=== PATIENT | male | born 1945 | race Caucasian/White ===

== ENCOUNTER 2017-01-25 13:41 | Outpatient (CLI) | payer MEDICARE, OTHER ==
[2017-01-25 18:39] LABS: HEMOGLOBIN A1C 0.54 g/dL
== END 2017-01-25 13:42 | disposition home or self-care (01) ==
LOC: LAB.F 13:41
PROVIDERS: ATTEND Family Medicine
DX: E73.9 Lactose intolerance, unspecified (principal)
CPT/HCPCS: 36415; 83036

== ENCOUNTER 2018-01-18 14:17 | Outpatient (CLI) | payer MEDICARE, OTHER ==
--- NOTE | 2018-01-18 16:24 | XRAY Report ---
Procedure Date: 01/18/2018 Accession Number: [id number] / [id number] Procedure: XRS - Lumbar Spine 2 View CPT Code: FULL RESULT: EXAM: Lumbar Spine 2 View DATE: 01/18/2018 2:35 PM CLINICAL HISTORY: LUMBAR SPINE PAIN COMPARISON: None. TECHNIQUE: 2 views. FINDINGS: Alignment: Levoconvex thoracolumbar scoliosis centered about L1 with left lateral flowing osteophytosis along the left side of T12, L1, L2. Bones: Five [id number]-tcm-orfievp lumbar vertebral bodies are present. No fractures or bone lesions. Disks: Desiccation of disc space height is most pronounced at L2-L5. Facets: Facet degenerative changes are most pronounced at L4-L5, apparent pars defect at L4. Sacroiliac Joints: Unremarkable. Soft Tissues: Normal. The visualized bowel gas pattern is normal. Extensive aortic calcifications. IMPRESSION: Levoconvex thoracolumbar scoliosis with associated degenerative changes. Question L4 pars defect. Atherosclerotic aorta. RADIA
== END 2018-01-18 14:18 | disposition home or self-care (01) ==
LOC: DI.S 14:17
PROVIDERS: ATTEND Nurse Practitioner Family
DX: M47.896 Other spondylosis, lumbar region (principal); M51.36 Other intervertebral disc degeneration, lumbar region; M41.85 Other forms of scoliosis, thoracolumbar region
CPT/HCPCS: 72100

== ENCOUNTER 2018-01-28 14:20 | Outpatient (CLI) | payer MEDICARE, OTHER ==
--- NOTE | 2018-01-28 15:54 | XRAY Report ---
Procedure Date: 01/28/2018 Accession Number: [id number] / [id number] Procedure: XRS - Ribs w/PA Chest LT CPT Code: FULL RESULT: EXAM: Ribs w/PA Chest LT DATE: 01/28/2018 2:49 PM CLINICAL HISTORY: PLEUROTIC CHEST PAIN COMPARISON: 01/03/2013. TECHNIQUE: 1 view of the chest and 2 views of the ribs. FINDINGS: Bones: Normal. No fracture or bone lesion. Lungs: No focal opacities. No pneumothorax or pleural effusions. Mediastinum: Heart and mediastinal contours are unremarkable. Other: Calcifications are seen in the region of the inferior left glenoid. IMPRESSION: No rib fracture is detected. No pleural effusion or pneumothorax is seen. RADIA
== END 2018-01-28 14:21 | disposition home or self-care (01) ==
LOC: DI.S 14:20
PROVIDERS: ATTEND Internal Medicine
DX: R07.9 Chest pain, unspecified (principal)

== ENCOUNTER 2018-10-16 11:11 | Outpatient (CLI) | payer MEDICARE, OTHER ==
[2018-10-16 11:26] LABS: BASOPHILS # (AUTO) 0.1 10^3/uL (0.0-0.1); BASOPHILS % (AUTO) 1.1 %; EOSINOPHILS # (AUTO) 0.1 10^3/uL (0.0-0.7); EOSINOPHILS % (AUTO) 1.8 %; HGB - HEMOGLOBIN 13.8 g/dL (14.0-18.0); LYMPHOCYTES # (AUTO) 2.4 10^3/uL (1.5-3.5); MEAN CORPUSCULAR HEMOGLOBIN 32.3 pg (27.0-31.0); MEAN CORPUSCULAR HGB CONC 33.4 g/dL (32.0-36.0); MEAN CORPUSCULAR VOLUME 96.5 fL (80.0-94.0); MEAN PLATELET VOLUME 7.3 fL (7.4-11.4); MONOCYTES # (AUTO) 0.7 10^3/uL (0.0-1.0); MONOCYTES % (AUTO) 9.4 %; NEUTROPHILS % (AUTO) 54.7 %; PLT - PLATELET COUNT 194 10^3/uL (130-450); RED BLOOD COUNT 4.27 10^6/uL (4.70-6.10); RED CELL DISTRIBUTION WIDTH 13.1 % (12.0-15.0); WHITE BLOOD COUNT 7.3 x10^3/uL (4.8-10.8)
[2018-10-16 11:39] LABS: ALBUMIN 4.2 g/dL (3.2-5.5); ALBUMIN/GLOBULIN RATIO 1.3 (1.0-2.2); CALCIUM 8.9 mg/dL (8.5-10.3); CREATININE 0.9 mg/dL (0.6-1.2); TOTAL PROTEIN 7.4 g/dL (6.7-8.2)
== END 2018-10-16 11:12 | disposition home or self-care (01) ==
LOC: LAB 11:11
PROVIDERS: ATTEND Internal Medicine Gastroenterology
DX: I10 Essential (primary) hypertension (principal)
CPT/HCPCS: 36415; 80053; 85025; 93005

== ENCOUNTER 2018-11-07 10:08 | Day surgery (SDC) | payer MEDICARE, OTHER ==
[2018-11-07] MEDS ORDERED: LACTATED RINGERS 1,000 ML IV ONE (10:42)
[2018-11-07] MEDS ORDERED: MIDAZOLAM 2 MG/2 ML VIAL IVP ONE (11:54)
[2018-11-07] MEDS ORDERED: fentaNYL 250 MCG/5 ML VIAL IVP ONE (11:54)
[2018-11-07 13:16] VITALS: BP 138/85
== END 2018-11-07 10:09 | disposition home or self-care (01) ==
LOC: SDS 10:08
PROVIDERS: ATTEND Internal Medicine Gastroenterology
PROC: 0DBN8ZZ Excision of Sigmoid Colon, Via Natural or Artificial Opening Endoscopic (ICD-10-PCS; 2018-11-07)
PROC: 0DBP8ZZ Excision of Rectum, Via Natural or Artificial Opening Endoscopic (ICD-10-PCS; 2018-11-07)
PROC: 0DBM8ZZ Excision of Descending Colon, Via Natural or Artificial Opening Endoscopic (ICD-10-PCS; 2018-11-07)
PROC: 0DBK8ZZ Excision of Ascending Colon, Via Natural or Artificial Opening Endoscopic (ICD-10-PCS; principal; 2018-11-07 12:00)
DX: R19.5 Other fecal abnormalities (principal); D12.2 Benign neoplasm of ascending colon; D12.4 Benign neoplasm of descending colon; D12.5 Benign neoplasm of sigmoid colon; K62.1 Rectal polyp; K57.30 Diverticulosis of large intestine without perforation or abscess without bleeding; K63.89 Other specified diseases of intestine; J45.909 Unspecified asthma, uncomplicated; I10 Essential (primary) hypertension; J30.2 Other seasonal allergic rhinitis; Z87.891 Personal history of nicotine dependence
CPT/HCPCS: 45380; J3010; J7120

== ENCOUNTER 2019-02-19 08:45 | Outpatient (CLI) | payer MEDICARE, OTHER ==
[2019-02-19] MEDS ORDERED: BARIUM SULFATE 176 GM BOTTLE PO ONE (11:09)
[2019-02-19] MEDS ORDERED: BARIUM SULFATE 148 GM POWDER PO ONE (11:11)
--- NOTE | 2019-02-19 16:03 | XRAY Report ---
Reason: ESOPHAGEAL DYSPHAGIA Procedure Date: 02/19/2019 Accession Number: [id number] / [id number] Procedure: FL - Esophogram CPT Code: FULL RESULT: EXAM: BARIUM ESOPHAGRAM EXAM DATE: 02/19/2019 11:02 AM. CLINICAL HISTORY: Esophageal dysphagia. COMPARISONS: None. TECHNIQUE: Routine double contrast esophagram. Fluoroscopy Time: 1 minute. Number of Images: 21. FINDINGS: Note: Fluoroscopy unit malfunctioned during the early part of initial exam and some images were lost. Swallowing Mechanism: Normal. No tracheal aspiration or penetration. Esophageal Motility: Normal peristaltic stripping wave. Mucosa: Normal. No ulcerations or masses. Gastroesophageal Junction: Small amount of transient reflux was noted with Valsalva maneuver. Otherwise no hiatal hernia or stricture. Other: None. IMPRESSION: Minimal gastroesophageal reflux with Valsalva maneuver. Otherwise barium swallow within normal limits. RADIA
== END 2019-02-19 08:46 | disposition home or self-care (01) ==
LOC: DI 08:45
PROVIDERS: ATTEND Family Medicine
DX: K21.9 Gastro-esophageal reflux disease without esophagitis (principal); R13.19 Other dysphagia
CPT/HCPCS: 74220; A9270

== ENCOUNTER 2020-05-07 08:56 | Outpatient (CLI) | payer MEDICARE, OTHER ==
[2020-05-07] MEDS ORDERED: ALBUTEROL 1 PUFF INH STA (10:47)
== END 2020-05-07 08:57 | disposition home or self-care (01) ==
LOC: RT 08:56
PROVIDERS: ATTEND Family Medicine
DX: R06.2 Wheezing (principal)
CPT/HCPCS: 94060; 94664; 94727; 94729

== ENCOUNTER 2020-06-10 07:54 | Emergency (ER) | payer MEDICARE, OTHER ==
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
[2020-06-10] MEDS ORDERED: HYDROmorphone 1 MG/ML CARPUJECT IM STA (08:48)
[2020-06-10] MEDS ORDERED: CYCLOBENZAPRINE 10 MG TABLET PO STA (08:48)
--- NOTE | 2020-06-10 09:39 | XRAY Report ---
PROCEDURE: Cervical Spine 2 View INDICATIONS: NECK INJURY/PAIN TECHNIQUE: 3 view(s) of the cervical spine were acquired. COMPARISON: None. FINDINGS: Bones: No fractures or dislocations to the C7 level. The lateral masses of C1 appear intact on the odontoid view. No suspicious bony lesions. Extensive cervical spondylitic change. Soft tissues: No prevertebral soft tissue swelling. IMPRESSION: 1. No evidence acute cervical fracture or dislocation. T1 suboptimally visualized. 2. Extensive cervical spondylitic change. Comment: In the setting of extensive cervical spondylitic change, would consider CT cervical spine. H ave significant clinical suspicion of acute injury. Reviewed by: Francesco Espino MD on 06/10/2020 9:38 AM PST Approved by: Francesco Espino MD on 06/10/2020 9:38 AM PST Station ID: [id number]
[2020-06-10 10:19] VITALS: BP 151/88
== END 2020-06-10 10:20 | disposition home or self-care (01) ==
LOC: ED 07:54
DX: S16.1XXA Strain of muscle, fascia and tendon at neck level, initial encounter (principal); X50.9XXA Other and unspecified overexertion or strenuous movements or postures, initial encounter; M47.812 Spondylosis without myelopathy or radiculopathy, cervical region; I10 Essential (primary) hypertension; Z79.82 Long term (current) use of aspirin
CPT/HCPCS: 72040; 96372; 99283; 99284; A9270; J1170

== ENCOUNTER 2021-05-03 12:12 | Outpatient (CLI) | payer MEDICARE, OTHER ==
--- NOTE | 2021-05-03 15:17 | XRAY Report ---
PROCEDURE: Hip w/Pelvis 2-3V LT INDICATIONS: PAIN IN LEFT HIP TECHNIQUE: AP pelvis with lateral view(s) of the bilateral hip(s). COMPARISON: None available in PACS secondary to technical issues. FINDINGS: No acute fracture. Lumbar spondylosis and facet disease. Mild bilateral hip joint degeneration. IMPRESSION: Mild bilateral hip joint degeneration. Reviewed by: Edy Reddy MD on 05/03/2021 3:15 PM PDT Approved by: Edy Reddy MD on 05/03/2021 3:15 PM PDT Station ID: [id number]
== END 2021-05-03 12:13 | disposition home or self-care (01) ==
LOC: DI 12:12
PROVIDERS: ATTEND Family Medicine
DX: M25.552 Pain in left hip (principal); M16.0 Bilateral primary osteoarthritis of hip

== ENCOUNTER 2021-10-24 07:24 | Outpatient (CLI) | payer MEDICARE, OTHER ==
[2021-10-24 14:56] LABS: ALBUMIN 3.8 g/dL (3.2-5.5); ALBUMIN/GLOBULIN RATIO 1.1 (1.0-2.2); ALKALINE PHOSPHATASE 103 IU/L (42-121); ALT ALANINE AMINOTRANSFERASE 24 IU/L (10-60); AST ASPARTATE AMINOTRANSFERASE 20 IU/L (10-42); BILIRUBIN,TOTAL 1.1 mg/dL (0.2-1.0); BUN - BLOOD UREA NITROGEN 32 mg/dL (6-20); CALCIUM 9.1 mg/dL (8.5-10.3); CARBON DIOXIDE - CO2 28 mmol/L (21-32); CHLORIDE 101 mmol/L (101-111); CHOL/HDL RATIO 2.6 (<5.0); CHOLESTEROL 167 mg/dL; GFR - MDRD 72 (>89); GLUCOSE 101 mg/dL (70-100); HDL CHOLESTEROL 65 mg/dL; LDL CHOLESTEROL,CALCULATED 90 mg/dL; LDL/HDL RATIO 1.4 (<3.6); POTASSIUM 4.4 mmol/L (3.5-5.0); SODIUM 138 mmol/L (135-145); TOTAL PROTEIN 7.2 g/dL (6.7-8.2); TRIGLYCERIDES 62 mg/dL; VLDL CHOLESTEROL 12 mg/dL
== END 2021-10-24 07:25 | disposition home or self-care (01) ==
LOC: LAB.S 07:24
PROVIDERS: ATTEND Family Medicine
DX: I10 Essential (primary) hypertension (principal); E78.2 Mixed hyperlipidemia
CPT/HCPCS: 36415; 80053; 80061; 83721

== ENCOUNTER 2021-12-26 07:09 | Outpatient (CLI) | payer MEDICARE, OTHER ==
[2021-12-26 15:10] LABS: ALBUMIN 3.8 g/dL (3.2-5.5); ALBUMIN/GLOBULIN RATIO 1.2 (1.0-2.2); ALKALINE PHOSPHATASE 195 IU/L (42-121); ALT ALANINE AMINOTRANSFERASE 84 IU/L (10-60); AST ASPARTATE AMINOTRANSFERASE 63 IU/L (10-42); BILIRUBIN,DIRECT 0.2 mg/dL (0.1-0.5); BILIRUBIN,TOTAL 0.8 mg/dL (0.2-1.0); BUN - BLOOD UREA NITROGEN 22 mg/dL (6-20); CALCIUM 9.3 mg/dL (8.5-10.3); CARBON DIOXIDE - CO2 30 mmol/L (21-32); CHLORIDE 102 mmol/L (101-111); CHOL/HDL RATIO 1.7 (<5.0); CHOLESTEROL 134 mg/dL; GFR - MDRD 72 (>89); GLUCOSE 117 mg/dL (70-100); HDL CHOLESTEROL 80 mg/dL; POTASSIUM 4.4 mmol/L (3.5-5.0); SODIUM 140 mmol/L (135-145); TOTAL PROTEIN 6.9 g/dL (6.7-8.2); TRIGLYCERIDES 36 mg/dL
== END 2021-12-26 07:10 | disposition home or self-care (01) ==
LOC: LAB.S 07:09
PROVIDERS: ATTEND Family Medicine
DX: E78.5 Hyperlipidemia, unspecified (principal); I10 Essential (primary) hypertension; I65.23 Occlusion and stenosis of bilateral carotid arteries
CPT/HCPCS: 36415; 80053; 80061; 80076; 82248; 83721

== ENCOUNTER 2022-10-02 15:23 | Outpatient (CLI) | payer MEDICARE, OTHER ==
--- NOTE | 2022-10-02 17:25 | MRI Report ---
PROCEDURE: LUMBAR SPINE WO INDICATIONS: LUMBAR RADICULOPATHY TECHNIQUE: Noncontrast sagittal T1 spin echo and T2 fast echo, sagittal STIR, axial T1 and T2 fast spin echo thr ough the lumbar spine. In cases with scoliosis, additional coronal T2 fast spin echo may be performe d. COMPARISON: Lumbar spine plain films dated 01/18/2018. FINDINGS: Image quality: Excellent. Alignment and Curvature: Mild levocurvature centered at L2-L3. Bone Marrow: Marrow is of normal overall signal. No acute vertebral body compression fractures. Spinal Cord: Conus medullaris terminates at the L1 level. Visualized cord demonstrates normal signa l and size. Paraspinous Soft Tissues: No paravertebral masses. T12-L1: No canal stenosis or foraminal stenosis. L1-L2: Posterior disc plus osteophyte. Mild facet hypertrophy. Mild canal stenosis. Qvee-ia-sasrmh te bilateral foraminal stenosis. L2-L3: Posterior disc with osteophyte. Facet hypertrophy. Mild canal stenosis. Mild to moderate bi lateral foraminal stenosis. L3-L4: Posterior disc with osteophyte. Facet hypertrophy. Mild canal stenosis. Moderate bilateral f oraminal narrowing with mild flattening deformity on the exiting bilateral L3 nerve roots. L4-L5: Short pedicles. Prominent facet hypertrophy. Posterior disc protrusion. Severe or high-grade canal stenosis. Qphw-qm-[id number] right foraminal narrowing. Severe left foraminal narrowing with lef t foraminal L4 nerve root impingement. L5-S1: Short pedicles. Disc bulge. Facet and ligament hypertrophy. Severe canal stenosis. Mild to m oderate right foraminal narrowing. Severe left foraminal narrowing with left foraminal L5 nerve root impingement. IMPRESSION: 1. 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 2. Canal stenosis is severe or high-grade at L4-L5 and severe L5-S1. 3. Multilevel foraminal narrowing as described above. Findings include severe left foraminal narrowin g with left foraminal nerve root impingement at L4-L5 and L5-S1. Reviewed by: Francesco Espino MD on 10/02/2022 5:24 PM PDT Approved by: Francesco Espino MD on 10/02/2022 5:24 PM PDT Station ID: [id number]
== END 2022-10-02 15:24 | disposition home or self-care (01) ==
LOC: DI 15:23
PROVIDERS: ATTEND Physical Medicine & Rehabilitation Sports Medicine
DX: M47.816 Spondylosis without myelopathy or radiculopathy, lumbar region (principal); M51.26 Other intervertebral disc displacement, lumbar region; M48.061 Spinal stenosis, lumbar region without neurogenic claudication; M47.817 Spondylosis without myelopathy or radiculopathy, lumbosacral region; M48.07 Spinal stenosis, lumbosacral region

== ENCOUNTER 2022-10-13 07:00 | Outpatient (CLI) | payer MEDICARE, OTHER ==
--- NOTE | 2022-10-13 11:43 | XRAY Report ---
PROCEDURE: Chest 2 View X-Ray INDICATIONS: PRODUCTIVE COUGH/CHEST CONGESTION TECHNIQUE: 2 views of the chest were acquired. COMPARISON: 01/28/2018. FINDINGS: Surgical changes and devices: None. Lungs and pleura: No pleural effusions or pneumothorax. Lungs are clear. Mediastinum: Mediastinal contours appear normal. Heart size is normal. Bones and chest wall: No suspicious bony lesions. Overlying soft tissues appear unremarkable. IMPRESSION: No acute cardiopulmonary process. Reviewed by: Francesco Espino MD on 10/13/2022 11:42 AM PDT Approved by: Francesco Espino MD on 10/13/2022 11:42 AM PDT Station ID: [id number]
== END 2022-10-13 23:59 | disposition home or self-care (01) ==
LOC: DI.S 07:00
PROVIDERS: ATTEND Physician Assistant Medical
DX: R05.8 Other specified cough (principal); R09.89 Other specified symptoms and signs involving the circulatory and respiratory systems

== ENCOUNTER 2022-10-31 10:38 | Outpatient (CLI) | payer MEDICARE, OTHER ==
[2022-10-31] MEDS ORDERED: GADOBUTROL 10 MMOL/10 ML VIAL ONE (12:21)
--- NOTE | 2022-10-31 16:19 | MRI Report ---
PROCEDURE: MRI cervical spine with and without contrast INDICATIONS: Pain CONTRAST: gadavist 7.9ml TECHNIQUE: Noncontrast sagittal T1 spin echo and T2 fast spin echo, sagittal STIR, sagittal PD fast spin echo, f oraminal oblique sagittal T2 fast spin echo, axial gradient echo or T2 fast spin echo through the cer vical spine. After the administration of contrast, sagittal and axial T1 spin echo with fat saturati on through the cervical spine. COMPARISON: None. FINDINGS: Image quality: Excellent. Alignment and curvature: There is straightening of normal cervical lordosis Marrow: Marrow demonstrates normal overall signal. Spinal cord: No suspicious intramedullary enhancement. No cerebellar tonsillar herniation. No abno rmal enhancement Paraspinous soft tissues: No paravertebral masses or suspicious enhancement. C2-C3: Disc height is maintained. Hypertrophic facet joints present. Mild central stenosis. Severe r ight and moderate left foraminal stenosis C3-C4: Disc height is maintained. There is degenerative ankylosis posteriorly. Posterior disc osteo phyte complex results in mild central stenosis. Severe right and left foraminal stenosis C4-C5: Disc space narrowing with posterior disc osteophyte complex results in moderate central steno sis. Moderate right and severe left foraminal stenosis present. C5-C6: Disc space narrowing and posterior disc osteophyte complex results in mild to moderate centra l stenosis. Hypertrophic uncovertebral joints result in severe right and left foraminal stenosis. C6-C7: Disc space narrowing and hypertrophic uncovertebral joints combine to result in mild to moder ate central stenosis. Severe bilateral foraminal stenosis present. C7-T1: Disc space narrowing with posterior disc osteophyte complex results in mild central stenosis. Hypertrophic uncovertebral joints associated with moderate bilateral foraminal stenosis. IMPRESSION: Multilevel degenerative disc disease and arthropathy results in varying degrees of central and forami nal stenosis including moderate central stenosis at C4-5 and multilevel severe foraminal stenosis Reviewed by: Pascual Wang MD on 10/31/2022 3:18 PM AKSIMON Approved by: Pascual Wang MD on 10/31/2022 3:18 PM AKSIMON Station ID: [id number]
[2022-10-31] MEDS ORDERED: GADOBUTROL 10 MMOL/10 ML VIAL IVP ONE (17:53)
--- NOTE | 2022-10-31 19:03 | MRI Report ---
PROCEDURE: MRI thoracic spine with and without contrast INDICATIONS: MYELOMALACIA OF CORD CONTRAST: gadavist 7.9ml TECHNIQUE: Noncontrast sagittal T1 spin echo and T2 fast spin echo, sagittal STIR, axial T1 and T2 fast spin ech o through the thoracic spine. After the administration of contrast, axial and sagittal T1 spin echo with fat saturation through the thoracic spine. COMPARISON: None. FINDINGS: Image quality: Excellent. Alignment and curvature: There is normal bony alignment. Marrow: Transitional anatomy noted in the lumbar spine. There is a vertebral hemangioma noted in the T12 vertebral body with hypoplastic ribs. Conus medullaris terminates at T12-L1. Spinal cord: Visualized spinal cord is of normal signal and size, without abnormal enhancement. Paraspinous soft tissues: No paravertebral masses or abnormal enhancement. Miscellaneous: Circumferential disc bulge and ligamentum flavum laxity at T9-10 and T10-11 results in mild to moderate central stenosis appear no cord compression. Mild degenerative disc disease noted i n the midthoracic spine as well. IMPRESSION: Degenerative disc disease and arthropathy results in mild to moderate central stenosis at T9-10 and T 10-11 without cord compression or myelomalacia Reviewed by: Pascual Wang MD on 10/31/2022 6:01 PM AMALIA Approved by: Pascual Wang MD on 10/31/2022 6:01 PM AMALIA Station ID: [id number]
== END 2022-10-31 10:39 | disposition home or self-care (01) ==
LOC: LAB 10:38
PROVIDERS: ATTEND Psychiatry & Neurology Clinical Neurophysiology
DX: G95.89 Other specified diseases of spinal cord (principal); M51.36 Other intervertebral disc degeneration, lumbar region; M48.061 Spinal stenosis, lumbar region without neurogenic claudication; M51.34 Other intervertebral disc degeneration, thoracic region; M48.04 Spinal stenosis, thoracic region
CPT/HCPCS: 36415; 72156; 72157; 82565; A9585

== ENCOUNTER 2023-08-14 09:14 | Outpatient (CLI) | payer MEDICARE, OTHER ==
--- NOTE | 2023-08-14 14:41 | MRI Report ---
PROCEDURE: Cervical Spine WO INDICATIONS: CERVICAL STENOSIS TECHNIQUE: Noncontrast sagittal T1 spin echo and T2 fast spin echo, sagittal STIR, foraminal oblique sagittal T2 fast spin echo, and axial gradient echo or T2 fast spin echo through the cervical spine. COMPARISON: Cervical spine MRI 10/31/2022 FINDINGS: Image quality: Excellent. Alignment and Curvature: There is straightening and mild reversal of the normal cervical lordosis as before. Bone Marrow: Marrow demonstrates normal overall signal. Spinal Cord: Visualized spinal cord has normal size and signal. No cerebellar tonsillar herniation. Paraspinous Soft Tissues: No paravertebral masses. Prevertebral soft tissues are normal in thicknes s. C2-C3: Disc desiccation is seen as well as bilateral uncovertebral joint and facet hypertrophy. Find ings result in severe bilateral neural foraminal narrowing without significant spinal canal stenosis. C3-C4: Ankylosis across the disc space with preserved disc space height. Bilateral uncovertebral rajwinder int and facet hypertrophy are present. Findings result in mild narrowing of the spinal canal as well as severe bilateral neural foraminal narrowing. C4-C5: Disc desiccation and loss of disc space height with posterior disc-osteophyte complex as well as uncovertebral joint and facet hypertrophy. Findings result in moderate narrowing of the spinal ca nal as well as moderate right and severe left neural foraminal narrowing. C5-C6: Disc desiccation and loss of disc space height with posterior disc-osteophyte complex as well as uncovertebral joint and facet hypertrophy. Findings result in mild narrowing of the spinal canal as well as severe bilateral neural foraminal narrowing. C6-C7: Disc desiccation and loss of disc space height with posterior disc-osteophyte complex as well as uncovertebral joint and facet hypertrophy. Findings result in mild narrowing of the spinal canal as well as severe bilateral neural foraminal narrowing. C7-T1: Disc desiccation and loss of disc space height with posterior disc-osteophyte complex as well as uncovertebral joint and facet hypertrophy. Findings result in mild narrowing of the spinal canal as well as moderate bilateral neural foraminal narrowing. IMPRESSION: 1.Multilevel degenerative disc disease, degenerative joint hypertrophy, and facet hypertrophy as desc ribed in detail in the body of the report. Findings do not appear significantly progressed when kendall red to the MRI from 10/31/2022. 2.Moderate spinal canal narrowing again seen at the C4-5 level. 3.Multilevel severe neural foraminal narrowing bilaterally. Reviewed by: Jose L Payne MD on 08/14/2023 2:39 PM PST Approved by: Jose L Payne MD on 08/14/2023 2:39 PM PST Station ID: [id number]
== END 2023-08-14 09:15 | disposition home or self-care (01) ==
LOC: DI 09:14
PROVIDERS: ATTEND Psychiatry & Neurology Clinical Neurophysiology
DX: M48.02 Spinal stenosis, cervical region (principal); M47.812 Spondylosis without myelopathy or radiculopathy, cervical region; M50.31 Other cervical disc degeneration, high cervical region

== ENCOUNTER 2024-01-17 06:40 | Emergency (ER) | payer MEDICARE, OTHER ==
[2024-01-17 07:24] LABS: BASOPHILS # (AUTO) 0.1 10^3/uL (0.0-0.1); BASOPHILS % (AUTO) 0.7 %; EOSINOPHILS # (AUTO) 0.2 10^3/uL (0.0-0.7); EOSINOPHILS % (AUTO) 2.1 %; HCT - HEMATOCRIT 39.6 % (42.0-52.0); HGB - HEMOGLOBIN 12.7 g/dL (14.0-18.0); LYMPHOCYTES # (AUTO) 1.5 10^3/uL (1.5-3.5); LYMPHOCYTES % (AUTO) 16.5 %; MEAN CORPUSCULAR HEMOGLOBIN 31.6 pg (27.0-31.0); MEAN CORPUSCULAR HGB CONC 32.1 g/dL (32.0-36.0); MEAN CORPUSCULAR VOLUME 98.5 fL (80.0-94.0); MEAN PLATELET VOLUME 9.8 fL (7.4-11.4); MONOCYTES # (AUTO) 0.6 10^3/uL (0.0-1.0); MONOCYTES % (AUTO) 7.2 %; NEUTROPHILS # (AUTO) 6.5 10^3/uL (1.5-6.6); NEUTROPHILS % (AUTO) 73.2 %; PLT - PLATELET COUNT 180 10^3/uL (130-450); RED BLOOD COUNT 4.02 10^6/uL (4.70-6.10); WHITE BLOOD COUNT 8.9 x10^3/uL (4.8-10.8)
[2024-01-17 07:38] LABS: ALBUMIN 4.2 g/dL (3.2-5.5); ALBUMIN/GLOBULIN RATIO 1.4 (1.0-2.2); ALKALINE PHOSPHATASE 132 IU/L (42-121); ALT ALANINE AMINOTRANSFERASE 12 IU/L (10-60); AST ASPARTATE AMINOTRANSFERASE 13 IU/L (10-42); BILIRUBIN,TOTAL 0.7 mg/dL (0.2-1.0); BUN - BLOOD UREA NITROGEN 28 mg/dL (6-20); CALCIUM 9.5 mg/dL (8.5-10.3); CARBON DIOXIDE - CO2 30 mmol/L (21-32); CHLORIDE 105 mmol/L (101-111); CREATININE 1.1 mg/dL (0.6-1.3); GFR - MDRD 65 (>89); GLUCOSE 120 mg/dL (74-104); LIPASE < 10 U/L (11-82); POTASSIUM 4.5 mmol/L (3.5-4.5); SODIUM 140 mmol/L (135-145); TOTAL PROTEIN 7.2 g/dL (6.4-8.9)
--- NOTE | 2024-01-17 07:42 | ED Physician Documentation ---
PD HPI ABD PAIN - Stated complaint Stated Complaint: ABD PX - Chief complaint Chief Complaint: Abd Pain - History obtained from History obtained from: Patient - Additional information Additional information: The patient comes to the emergency department chief complaint of abdominal pain and nausea. He states the nausea started last night after eating dinner. He states he just had a persistent sense of feeling sick to his stomach but that he was able to get to sleep last night and when he woke up this morning the nausea seemed a little better. However, he noticed mid abdominal pain that seem to extend both up and down from his umbilical area. The patient has a history of an umbilical hernia but does not feel that its gotten worse recently. He states that he has Parkinson's disease and his meds make him constipated and that he only has a bowel movement about every 2 to 3 days. His last 1 was the day before yesterday so he is due today. The patient denies any chest symptoms. No blood in his stools. No vomiting. He has not had any organs surgically removed. He denies any fevers or chills. No dysuria. No other complaints at this time. PD PAST MEDICAL HISTORY - Past Medical History Past Medical History: Yes Cardiovascular: Hypertension Respiratory: Asthma Endocrine/Autoimmune: None GI: None : Benign prostate hypertrophy HEENT: None Psych: None Musculoskeletal: Chronic back pain, Other Derm: Eczema - Past Surgical History Past Surgical History: Yes General: Colonoscopy, Other Ortho: Other - Present Medications Home Medications: Ambulatory Orders Medication Instructions Recorded Confirmed Aspirin [Adult Aspirin Regimen] 81 mg PO DAILY 11/06/18 01/17/24 Cetirizine [ZyrTEC] 10 mg PO DAILY 11/06/18 01/17/24 Oxycodone HCl/Acetaminophen 1 - 2 each PO Q6H PRN #14 tablet 06/10/20 01/17/24 [Percocet 5-325 mg Tablet] Albuterol Sulfate [Proair 2 puffs IH Q4HR PRN 01/17/24 01/17/24 Digihaler] Atorvastatin [Lipitor] 10 mg PO DAILY 01/17/24 01/17/24 Carbidopa/Levodopa 1 each PO QID 01/17/24 01/17/24 [Carbidopa-Levodopa 25-100 Tab] Latanoprost 0.005% Ophth Drops 1 drops EACHEYE DAILY 01/17/24 01/17/24 [Xalatan Ophth Drops] Montelukast Sodium 10 mg PO DAILY 01/17/24 01/17/24 Sertraline [Zoloft] 25 mg PO DAILY 01/17/24 01/17/24 Valsartan [Diovan] 40 mg PO DAILY 01/17/24 01/17/24 allopurinoL [Zyloprim] 100 mg PO DAILY 01/17/24 01/17/24 - Allergies Allergies/Adverse Reactions: Allergies Allergy/AdvReac Type Severity Reaction Status Date / Time NSAIDS (Non-Steroidal AdvReac Intermediate Nausea Verified 01/17/24 06:54 Anti-Inflamma - Social History Does the pt smoke?: No Smoking Status: Never smoker Does the pt drink ETOH?: Yes ETOH Use: Wine Does the pt have substance abuse?: No - Immunizations Immunizations are current?: Yes - POLST Patient has POLST: No PD ED PE NORMAL - Vitals Vital signs reviewed: Yes - General General: Alert and oriented X 3, No acute distress, Well developed/nourished - HEENT HEENT: Atraumatic, PERRL, EOMI, Moist mucous membranes - Neck Neck: Supple, no meningeal sign - Cardiac Cardiac: RRR, No murmur, Strong equal pulses - Respiratory Respiratory: No respiratory distress, Clear bilaterally - Abdomen Abdomen: Soft, Non distended, Other (Mild mid abdominal tenderness. No rebound or guarding. Small, reducible umbilical hernia.) - Derm Derm: Normal color, Warm and dry, No rash - Extremities Extremities: No deformity - Neuro Neuro: Other (Alert and grossly intact) - Psych Psych: Normal mood, Normal affect Results - Vitals Vitals: Vital Signs - 24 hr 01/17/24 01/17/24 01/17/24 06:45 07:23 09:10 Temperature 36.6 C Heart Rate 65 72 69 Respiratory 18 20 20 Rate Blood Pressure 165/90 H 145/93 H 178/87 H O2 Saturation 100 99 97 01/17/24 01/17/24 01/17/24 11:00 13:15 15:00 Temperature Heart Rate 73 76 70 Respiratory 20 20 20 Rate Blood Pressure 111/69 152/79 H 140/77 H O2 Saturation 99 95 97 01/17/24 01/17/24 01/17/24 17:00 19:00 19:10 Temperature 36.8 C Heart Rate 68 69 67 Respiratory 20 20 16 Rate Blood Pressure 136/67 H 144/65 H 144/65 H O2 Saturation 95 96 100 01/17/24 01/17/24 01/17/24 19:30 20:29 21:45 Temperature 36.0 C L Heart Rate 67 69 64 Respiratory 16 16 16 Rate Blood Pressure 130/75 119/70 138/72 H O2 Saturation 96 98 95 01/17/24 22:00 Temperature Heart Rate 64 Respiratory 16 Rate Blood Pressure 132/75 H O2 Saturation 94 Oxygen O2 Source Room air - Labs Labs: Laboratory Tests 01/17/24 01/17/24 01/17/24 07:15 07:15 10:17 WBC 8.9 RBC 4.02 L Hgb 12.7 L Hct 39.6 L MCV 98.5 H MCH 31.6 H MCHC 32.1 RDW 13.0 Plt Count 180 MPV 9.8 Neut # (Auto) 6.5 Lymph # (Auto) 1.5 [place] # (Auto) 0.6 Eos # (Auto) 0.2 Baso # (Auto) 0.1 Absolute Nucleated RBC 0.00 Nucleated RBC % 0.0 Sodium 140 Potassium 4.5 Chloride 105 Carbon Dioxide 30 Anion Gap 5.0 L BUN 28 H Creatinine 1.1 Estimated GFR (MDRD) 65 L Glucose 120 H Lactic Acid Calcium 9.5 Total Bilirubin 0.7 AST 13 ALT 12 Alkaline Phosphatase 132 H Total Protein 7.2 Albumin 4.2 Globulin 3.0 Albumin/Globulin Ratio 1.4 Lipase < 10 L Urine Color YELLOW Urine Clarity CLEAR Urine pH 6.0 Ur Specific [place] 1.010 Urine Protein NEGATIVE Urine Glucose (UA) NEGATIVE Urine Ketones NEGATIVE Urine Occult Blood NEGATIVE Urine Nitrite NEGATIVE Urine Bilirubin NEGATIVE Urine Urobilinogen 0.2 (NORMAL) Ur Leukocyte Esterase NEGATIVE Ur Microscopic Review NOT INDICATED Urine Culture Comments NOT INDICATED 01/17/24 19:39 WBC RBC Hgb Hct MCV MCH MCHC RDW Plt Count MPV Neut # (Auto) Lymph # (Auto) [place] # (Auto) Eos # (Auto) Baso # (Auto) Absolute Nucleated RBC Nucleated RBC % Sodium Potassium Chloride Carbon Dioxide Anion Gap BUN Creatinine Estimated GFR (MDRD) Glucose Lactic Acid 0.8 Calcium Total Bilirubin AST ALT Alkaline Phosphatase Total Protein Albumin Globulin Albumin/Globulin Ratio Lipase Urine Color Urine Clarity Urine pH Ur Specific [place] Urine Protein Urine Glucose (UA) Urine Ketones Urine Occult Blood Urine Nitrite Urine Bilirubin Urine Urobilinogen Ur Leukocyte Esterase Ur Microscopic Review Urine Culture Comments PD Medical Decision Making - ED course Complexity details: reviewed results, re-evaluated patient, considered differential, d/w patient, d/w family ED course: The patient was worked up with labs and urinalysis and given IV fluids. He ultimately was sent for CT scan of the abdomen and pelvis, which showed early or partial SBO and possible choledocholithiasis. Despite this, his labs, inclu ding WBC count and LFTs, were unremarkable. He was sent for MRCP, which showed multiple layered stones in CBD, thickened and enlarged GB, pericholecystic fluid, and multiple stones, c/w acute cholecystitis. The pt was started on Zosyn. He was feeling much better after Zofran, Dilaudid, and Toradol. I d/w pt and the findings and that pt would need to be transferred. We are currently contacting hospitals to see who might be willing to accept this pt in transfer. The pt is signed out to Dr. Wolf at change of shift, pending this. Departure - Departure Disposition: 02 Transfer Acute Care Hosp Clinical Impression: Acute cholecystitis, Choledocholithiasis, Small bowel obstruction Condition: Serious Forms: PCP List
[2024-01-17] MEDS ORDERED: iohexoL-300 100 ML VIAL ONE (07:51)
[2024-01-17] MEDS: SODIUM CHLORIDE 0.9% 1,000 ML IV STA ×2 (08:03→10:48)
--- NOTE | 2024-01-17 08:50 | CT Report ---
PROCEDURE: Abdomen/Pelvis W INDICATIONS: mid-abd pain and nausea CONTRAST: Omni 300 100ml TECHNIQUE: After the administration of intravenous contrast, a CT scan of the abdomen and pelvis was performed. Images were recorded and evaluated at appropriate window settings. Reformats: coronal and sagittal. F or radiation dose reduction, the following was used: automated exposure control, adjustment of mA and /or kV according to patient size. COMPARISON: None. FINDINGS: Image quality: Diagnostic. Lower chest: Unremarkable. Liver: No solid mass. Gallbladder: Gallstones are present. There is mild gallbladder wall thickening. Gallbladder is mildly distended. Biliary tree: Question possible faintly calcified common duct stone. Reference axial image 57 of seri es 2. Biliary ductal dilatation. At the level of the common hepatic duct, the measurement is 11.0 mm. There is central intrahepatic biliary ductal dilatation as well.. Spleen: No splenomegaly. Pancreas: No pancreatic ductal dilation. Adrenals: No adrenal nodule. Kidneys and ureters: No hydronephrosis. No renal cystic lesion which requires follow up. No solid mas s. Stomach, bowel and peritoneum: There region of the pylorus of the stomach is narrowed and questionabl y edematous. This may simply represent pyloric contraction. The gastric antrum and duodenal bulb and C-loop are unremarkable in appearance. There is a early or partial small bowel obstruction at the lev el of the distal jejunum or proximal ileum. Proximal small bowel loops measure up to 3.4 cm. No patho logic free fluid. Lymph nodes: No central or retroperitoneal adenopathy. Vessels: No infrarenal aortic aneurysm. Patent portal vein. PELVIS Reproductive organs: Unremarkable. Bladder: No abnormal wall thickening, accounting for underdistention. Pelvic lymph nodes: No pelvic adenopathy by size criteria. Bones: No aggressive osseous abnormality. Degenerative change.. Other: There is a right inguinal hernia which appears to have relatively small opening with a moderat jenna large amount of herniated fat with some inflammatory change at the entrance, suggesting possible incarceration or nonreducible. IMPRESSION: 1. Early or partial small bowel obstruction. Definite transition point. 2. Probable common duct stone with biliary ductal dilatation. 3. Cholelithiasis. 4. Question incarcerated or nonreducible right inguinal hernia. Reviewed by: Francesco Espino MD on 01/17/2024 8:49 AM PDT Approved by: Francesco Espino MD on 01/17/2024 8:49 AM PDT Station ID: [id number]
[2024-01-17] MEDS: iohexoL-300 100 ML VIAL IVP ONE (09:26)
[2024-01-17 10:49] LABS: BILIRUBIN,URINE NEGATIVE (NEGATIVE); CLARITY,URINE CLEAR (CLEAR); GLUCOSE, URINE (UA) NEGATIVE (NEGATIVE); KETONES,URINE (UA) NEGATIVE (NEGATIVE); LEUKOCYTE ESTERASE, URINE NEGATIVE (NEGATIVE); NITRITE,URINE NEGATIVE (NEGATIVE); OCCULT BLOOD,URINE NEGATIVE (NEGATIVE); PROTEIN,URINE NEGATIVE (NEGATIVE); UROBILINOGEN,URINE 0.2 (NORMAL) E.U./dL (NORMAL)
[2024-01-17] MEDS: KETOROLAC 30 MG/ML VIAL IVP STA (11:06)
[2024-01-17] MEDS: HYDROmorphone 1 MG/ML CARPUJECT IVP STA (11:24)
[2024-01-17] MEDS: ONDANSETRON 4 MG/2 ML VIAL IVP STA (11:24)
--- NOTE | 2024-01-17 17:20 | MRI Report ---
PROCEDURE: MRCP WO INDICATIONS: possible CBD stone, nL LFTs CONTRAST: None TECHNIQUE: Coronal ultra fast SE through the abdomen, axial 2-D spoiled GE in- and [id number], and breath-hold T2 FSE with fat saturation through the biliary system and pancreas. Oblique coronal and axial thin- slice ultra fast SE, radial thick-slab ultra fast SE centered on the extrahepatic bile ducts. COMPARISON: Same day CT FINDINGS: Image quality: Excellent. Gallbladder: Cholelithiasis. Focal wall thickening. Gallbladder hydrops. Pericholecystic fluid is pre sent. Biliary tree: Choledocholithiasis, with multiple small gallstones impacted in the common bile duct. I ntrahepatic and extrahepatic biliary dilation. Common bile duct measures up to 1.1 cm. Pancreas: No pancreatic ductal dilation. Prominent accessory duct. Lung bases and heart: Trace pleural effusions. Liver: 1.7 cm hemangioma in segment 7 (series 6, image 2). Spleen: No splenomegaly. Adrenals: No adrenal nodule. Kidneys and ureters: No hydronephrosis. No renal cystic lesion which requires follow up. No solid mas s. Bowel and peritoneum: No bowel distension. No pathologic free fluid. Lymph nodes: No central or retroperitoneal adenopathy. Vessels: No infrarenal aortic aneurysm. Bones: No aggressive osseous abnormality. Other: No significant ventral hernia. IMPRESSION: Cholelithiasis with gallbladder hydrops, pericholecystic fluid and focal wall thickening, concerning for acute cholecystitis. Choledocholithiasis, with multiple subcentimeter stones layering within the distended common bile nimisha t. Reviewed by: Javi Santana MD on 01/17/2024 4:19 PM AMALIA Approved by: Javi Santana MD on 01/17/2024 4:19 PM AKSIMON Station ID: [id number]
[2024-01-17] MEDS: PIPERACILLIN/TAZOBACTAM 3.375 GM in SODIUM CHLORIDE 0.9% MINIBAG 100 ML IV STA (19:58)
--- NOTE | 2024-01-17 20:35 | ED Physician Documentation ---
ED Addendum - Addendum Addendum: 01/17/24 20:34 Patient endorsed to me by Dr. Tolbert awaiting transfer for acute cholecystitis and choledocholithiasis, detected on MRCP today. We are calling all [facility] this but so far no response. Plan to endorsed oncoming daytime EDMD at 7 AM shift change if unable to find accepting hospital overnight. 01/17/24 23:44 d/w [facility] has ercp coverage 01/17/24 though no beds overnight. will continue to coordinate with [facility].
[2024-01-17] MEDS ORDERED: ONDANSETRON 4 MG/2 ML VIAL IVP PRN (23:57)
[2024-01-18] MEDS ORDERED: CARBIDOPA/LEVODOPA 25 MG/100 MG TABLET ONE (00:02)
[2024-01-18] MEDS: CARBIDOPA/LEVODOPA ER 25 MG/100 MG TABLET PO SCH (00:06)
[2024-01-18] MEDS: SODIUM CHLORIDE 0.9% 1,000 ML IV STA (00:10)
[2024-01-18 05:09] LABS: BASOPHILS % (AUTO) 0.6 %; EOSINOPHILS # (AUTO) 0.1 10^3/uL (0.0-0.7); EOSINOPHILS % (AUTO) 1.7 %; HGB - HEMOGLOBIN 11.9 g/dL (14.0-18.0); LYMPHOCYTES # (AUTO) 1.7 10^3/uL (1.5-3.5); LYMPHOCYTES % (AUTO) 23.7 %; MEAN CORPUSCULAR HEMOGLOBIN 31.7 pg (27.0-31.0); MEAN CORPUSCULAR HGB CONC 32.2 g/dL (32.0-36.0); MEAN CORPUSCULAR VOLUME 98.7 fL (80.0-94.0); MEAN PLATELET VOLUME 9.9 fL (7.4-11.4); MONOCYTES # (AUTO) 0.7 10^3/uL (0.0-1.0); MONOCYTES % (AUTO) 10.6 %; NEUTROPHILS # (AUTO) 4.4 10^3/uL (1.5-6.6); NEUTROPHILS % (AUTO) 63.3 %; PLT - PLATELET COUNT 156 10^3/uL (130-450); RED BLOOD COUNT 3.75 10^6/uL (4.70-6.10); RED CELL DISTRIBUTION WIDTH 13.1 % (12.0-15.0)
[2024-01-18] MEDS: HYDROmorphone 0.5 MG/0.5 ML SYRINGE IVP PRN (05:19)
[2024-01-18 05:26] LABS: CALCIUM 8.8 mg/dL (8.5-10.3); CREATININE 1.1 mg/dL (0.6-1.3); POTASSIUM 4.1 mmol/L (3.5-4.5)
[2024-01-18] MEDS: LIDOCAINE JELLY 2% 6 ML JEL.PF.APP TOP STA (14:43)
[2024-01-18] MEDS: CARBIDOPA/LEVODOPA 25 MG/100 MG TABLET PO SCH (17:05)
--- NOTE | 2024-01-18 17:08 | ED Physician Documentation ---
ED Addendum - Addendum Addendum: 01/18/24 17:06 The patient was signed out to me at change of shift, continuing to pend transfer to another hospital for cholecystitis with choledocholithiasis. He has been on the waiting list for the [facility] see him for a variety of facilities and so far, nobody has availability for him to come. The patient overall was fairly comfortable throughout his stay in the emergency department today. He had his usual meds ordered on schedule and he did also request some lidocaine jelly for his decubitus ulcer that he has had on his buttock. At this point in time, we will continue to try to get him transferred. Will have the facilities clerk call the [facility] see to get an update on the progress of his case. The patient is signed out at change of shift to the oncoming emergency physician, pending final disposition and transfer to facility that can provide definitive care.
[2024-01-18] MEDS: PIPERACILLIN/TAZOBACTAM 3.375 GM in SODIUM CHLORIDE 0.9% MINIBAG 100 ML IV SCH (18:23)
[2024-01-18] MEDS: D5.45NS W/20 MEQ KCL 1,000 ML IV STA (21:35)
--- NOTE | 2024-01-18 21:41 | ED Physician Documentation ---
ED Addendum - Addendum Addendum: 01/18/24 21:41 Looks as though [facility] may have a bed for this gentleman. I presented the case to the bookmobile driver on-call, Dr. Arredondo who agrees with transfer. He defers to the hospitalist for admit who we are paging at this time. 01/18/24 21:[address] Liliana Esparza at this time to [facility]. Diagnosis: 1. Cholecystitis 2. Choledocholithiasis Disposition: Transferred to [facility] Condition: Stable 01/18/24 22:01
[2024-01-18 22:37] VITALS: BP 180/96; O2SAT 98
== END 2024-01-18 23:30 | disposition short-term general hospital (02) ==
LOC: ED 06:40
DX: K80.42 Calculus of bile duct with acute cholecystitis without obstruction (principal); K80.00 Calculus of gallbladder with acute cholecystitis without obstruction; K56.600 Partial intestinal obstruction, unspecified as to cause; K42.9 Umbilical hernia without obstruction or gangrene; L89.309 Pressure ulcer of unspecified buttock, unspecified stage; G20.A1 Parkinson's disease without dyskinesia, without mention of fluctuations; Z75.1 Person awaiting admission to adequate facility elsewhere
CPT/HCPCS: 36415; 74177; 74181; 80048; 80053; 81003; 83605; 83690; 85025; 87040; 96361; 96365; 96366; 96375; 96376; 99285; A9270; J1170; Q9967; 81001; 82803; 87086

== ENCOUNTER 2024-02-04 08:55 | Outpatient (CLI) | payer MEDICARE, OTHER ==
[~2024-02-04 08:55] MED LIST: GADOTERATE MEGLUMINE 10 MMOL/20 ML VIAL ONE
[2024-02-04] MEDS: GADOTERATE MEGLUMINE 10 MMOL/20 ML VIAL IVP ONE (15:29)
--- NOTE | 2024-02-12 13:51 | MRI Report ---
PROCEDURE: Abdomen W/WO INDICATIONS: LIVER LESION CONTRAST: 16.6ml Clariscan TECHNIQUE: Coronal ultra fast SE, axial 2D spoiled GE in- and [id number]; axial breath-hold T2 fast SE. Dynam ic axial ultra fast GE during the administration of contrast; post-contrast coronal ultra fast GE or 2D spoiled GE with fat saturation from the hepatic dome to the iliac crests. Optional diffusion weig hted imaging and ADC may be performed. COMPARISON: CT 01/17/2024 and MRCP 01/17/2024 FINDINGS: Image quality: Decreased due to respiratory motion artifact. Lung bases and heart: No pleural or pericardial effusion. Liver: Ovoid subcapsular mild T2 hyperintensity in segment 7 measures 1.8 cm in maximum diameter. Thi s demonstrates partial nodular arterial wall thickening with gradual wash-in over 5 minutes. Minor joel bcapsular T2 hyperintensity in the gallbladder fossa along the posterior right hepatic lobe consisten t with surgical change. Gallbladder and biliary tree: The gallbladder is recently surgically absent. Mild residual extrahepat ic biliary dilatation with common duct measuring up to 11 mm. No visible stone. The duct tapers abrup tly at the ampulla. Spleen: No splenomegaly. Pancreas: Pancreatic atrophy. No ductal dilatation. Adrenals: No adrenal nodule. Kidneys and ureters: No hydronephrosis. No renal cystic lesion which requires follow up. No solid mas s. No visible hydroureter. Bowel and peritoneum: The stomach and visible small bowel loops are normal caliber. Increased quantit y of solid stool present. Lymph nodes: No central or retroperitoneal adenopathy. Vessels: Normal caliber abdominal aorta, IVC, and portal vein. Bones: No aggressive osseous abnormality. Other: No significant ventral hernia. IMPRESSION: 1.8 cm subcapsular segment 7 hemangioma. No other liver lesion. Recent cholecystectomy with removal of common duct stones. There is mild residual common duct dilatat ion. Reviewed by: hSaron Rodriguez MD on 02/12/2024 1:50 PM PDT Approved by: Sharon Rodriguez MD on 02/12/2024 1:50 PM PDT Station ID: [id number]
== END 2024-02-04 08:56 | disposition home or self-care (01) ==
LOC: DI 08:55
PROVIDERS: ATTEND Registered Nurse
DX: K76.9 Liver disease, unspecified (principal); D18.09 Hemangioma of other sites
CPT/HCPCS: 74183; A9575

== ENCOUNTER 2024-02-20 07:00 | Outpatient (CLI) | payer MEDICARE, OTHER ==
--- NOTE | 2024-02-20 16:54 | XRAY Report ---
PROCEDURE: Hand 3+V LT INDICATIONS: LEFT HAND PAIN TECHNIQUE: 3 views of the hand(s) acquired. COMPARISON: None. FINDINGS: Bones: No fractures or dislocations. No suspicious bony lesions. Scattered IP degenerative narrowing. No distinct erosions. Very minimal appearance of periarticular o steophytes. Soft tissues: No suspicious soft tissue calcifications or masses. IMPRESSION: Mild arthritic changes. No visualized acute fracture or dislocation. However, occult injury cannot be excluded. Recommend jn rt interval imaging follow-up in 7-10 days as clinically indicated for additional evaluation. Reviewed by: Coleen Bowen MD on 02/20/2024 4:52 PM PDT Approved by: Coleen Bowen MD on 02/20/2024 4:52 PM PDT Station ID: [id number]
== END 2024-02-20 23:59 | disposition home or self-care (01) ==
LOC: DI.S 07:00
PROVIDERS: ATTEND Emergency Medicine
DX: M19.042 Primary osteoarthritis, left hand (principal)